=== PATIENT | female | born 1985 | race American Indian/Alaskan Native ===

== ENCOUNTER 2021-05-04 11:16 | Emergency (ER) | payer OTHER ==
[2021-05-04 12:30] VITALS: BP 190/102
[2021-05-04 14:34] LABS: Basophils # (Auto) 0.1 K/mm3 (0.0-0.1); Basophils % (Auto) 0.7 % (0.0-1.8); Eosinophils # (Auto) 0.2 K/mm3 (0.0-0.4); Eosinophils % (Auto) 2.1 % (0.0-4.3); Hemoglobin 12.9 gm/dl (10.1-14.3); Lymphocytes # (Auto) 3.2 K/mm3 (1.2-5.4); Lymphocytes % (Auto) 41.3 % (13.4-35.0); Mean Corpuscular HGB Conc 32 % (30-34); Mean Corpuscular Volume 89 fl (79-97); Monocytes # (Auto) 0.5 K/mm3 (0.0-0.8); Monocytes % (Auto) 6.2 % (0.0-7.3); Platelet Count 323 K/mm3 (140-440); Red Cell Distribution Width 14.9 % (13.2-15.2)
[2021-05-04 15:07] LABS: Alanine Aminotransferase 10 units/L (7-56); Albumin 3.8 g/dL (3.9-5); Blood Urea Nitrogen 10 mg/dL (7-17); Calcium 9.2 mg/dL (8.4-10.2); Hemolysis Index 1
[2021-05-04 15:09] LABS: BUN/Creatinine Ratio 14
--- NOTE | 2021-05-04 15:26 | Emergency Department Report ---
ED Female HPI - General Chief complaint: Vaginal Bleeding Stated complaint: DR SENT FOR HEAVY BLEEDING Time Seen by Provider: 05/04/21 14:19 Source: patient Mode of arrival: Ambulatory Limitations: No Limitations - History of Present Illness Initial comments: 35 year old female presents to ED with complaints of abnormal vaginal bleeding. Pt states that the bleeding has been ongoing since March 2021. She states she had a normal mentrual cycle in the beginning of march, then bleeding stopped and the 1 week later she started to bleed again and has been bleeding since. She states she has been to a few ERs for her symptoms and she has had labs and pelvic Ultrasounds. She states she also saw her OBGYN last saturday and had US. She states the ultrasounds keeps showing the they are unable to see her right ovary and the "something" is blocking it. She states her OBGYN has discussed exploratory surgery and that is scheduled for may 16. She states the bleeding has been heavier than her normal mentrual cycle and she has been passing large clots. She states she has been changing 3 pads every 2 hrs and she has been having a pulling sensation in right pelvic area since the bleeding started in march. She states what concerned her today was that she woke up with her pants soaked with blood and she felt dizzy and lightheaded. She denies any syncope or near syncopal episodes, chest pain, sob or any additional symptoms at this time. She called her OBGYN office and they recommended coming to ED. She states she was tried on provera x2 without success. Her pmhx is significant for PCOS, intracranial hypertension, and obesity Complaint: vaginal bleeding -: week(s) (since march 2021) - Related Data Previous Rx's Medication Instructions Recorded Last Taken Type HYDROcodone/APAP 5-325 [Union 1 each PO Q6HR PRN #12 tablet 05/04/21 Unknown Rx 5/325] Ibuprofen [Motrin] 800 mg PO Q8HR PRN #30 tablet 05/04/21 Unknown Rx Allergies Allergy/AdvReac Type Severity Reaction Status Date / Time No Known Allergies Allergy Unverified 05/04/21 12:27 ED Review of Systems ROS: Stated complaint: DR SENT FOR HEAVY BLEEDING Other details as noted in HPI Comment: All other systems reviewed and negative Constitutional: denies: chills, fever Eyes: denies: eye pain, eye discharge, vision change ENT: denies: ear pain, throat pain Respiratory: denies: cough, shortness of breath, wheezing Cardiovascular: denies: chest pain, palpitations Gastrointestinal: abdominal pain. denies: nausea, vomiting, diarrhea, constipation, hematemesis, melena, hematochezia Genitourinary: abnormal menses. denies: urgency, dysuria, frequency, hematuria, discharge Musculoskeletal: denies: back pain, joint swelling, arthralgia, myalgia Skin: denies: rash, lesions, change in color, change in hair/nails, pruritus Neurological: denies: headache, weakness, numbness, paresthesias, confusion, abnormal gait, vertigo Psychiatric: denies: anxiety, depression, auditory hallucinations, visual hallucinations, homicidal thoughts, suicidal thoughts Hematological/Lymphatic: denies: easy bleeding, easy bruising ED Past Medical Hx - Past Medical History Additional medical history: OVARY CYST/IIH/ - Surgical History Hx Cholecystectomy: Yes Additional Surgical History: OVARY - Medications Home Medications: Home Medications Medication Instructions Recorded Confirmed Last Taken Type HYDROcodone/APAP 5-325 [Union 1 each PO Q6HR PRN #12 tablet 05/04/21 Unknown Rx 5/325] Ibuprofen [Motrin] 800 mg PO Q8HR PRN #30 tablet 05/04/21 Unknown Rx ED Physical Exam - General Limitations: No Limitations General appearance: alert, in no apparent distress, obese - Head Head exam: Present: atraumatic, normocephalic, normal inspection - Eye Eye exam: Present: normal appearance, PERRL, EOMI Pupils: Present: normal accommodation - Neck Neck exam: Present: normal inspection, full ROM - Respiratory Respiratory exam: Present: normal lung sounds bilaterally. Absent: respiratory distress, wheezes, rales, rhonchi - Cardiovascular Cardiovascular Exam: Present: regular rate, normal rhythm, normal heart sounds - GI/Abdominal GI/Abdominal exam: Present: soft, tenderness (Mild ttp more so in right pelvic area without guarding or rebound). Absent: distended, guarding, rebound - Neurological Exam Neurological exam: Present: alert, oriented X3, CN II-XII intact, normal gait - Psychiatric Psychiatric exam: Present: normal affect, normal mood ED Course Vital Signs 05/04/21 12:27 Temperature 98.7 F Pulse Rate 83 Respiratory 17 Rate Blood Pressure 190/102 O2 Sat by Pulse 98 Oximetry ED Medical Decision Making - Lab Data Result diagrams: 05/04/21 13:52 05/04/21 13:52 - Medical Decision Making All labs reviewed -- Pt has normal H/H and remaining of her CBC normal, and CMP normal. HCG negative. Pt is well appearing, not toxic and not in any sig distress. She is neurologically intact with normal gait. Pt has had few pelvic US to evaluate her symptoms in past few weeks and most recent was saturday at her OB office. I do not see any indication for doing another pelvic US at this time. Her VS show that she is hypertensive but she states this is typical when she comes to hospital but she has never been dx with HTN, her remaining VS are stable. I do not believe her symptoms today are related to her HTN. No additional testing or emergent specialist consult indicated a this time. discussed all labs with patient. She will be given something for her pain and recommend she keeps her appoint for exploratory surgery in may. Pt expressed understanding of all instructions and agreed with plan. Critical care attestation.: If time is entered above; I have spent that time in minutes in the direct care of this critically ill patient, excluding procedure time. ED Disposition Clinical Impression: Abnormal vaginal bleeding Disposition: HOME / SELF CARE / HOMELESS Is pt being admited?: No Does the pt Need Aspirin: No Condition: Stable Instructions: Abnormal Uterine Bleeding, [id number] Additional Instructions: I recommend that you take the ibuprofen and hydrocodone as prescribed for pain. I also recommend that you keep your appointment with the [facility] to have your surgery on May 16. Drink lots of fluids. Return to the ER if your symptoms changes or worsens in any way. Prescriptions: Ibuprofen [Motrin] 800 mg PO Q8HR PRN #30 tablet PRN Reason: pain HYDROcodone/APAP 5-325 [Union 5/325] 1 each PO Q6HR PRN #12 tablet PRN Reason: Pain Referrals: [facility] [Provider Group] - 7-10 days Forms: Work/School Release Form(ED) Time of Disposition: 15:25
== END 2021-05-04 15:45 | disposition home or self-care (01) ==
LOC: ED 11:16
DX: N93.9 Abnormal uterine and vaginal bleeding, unspecified (principal); Z79.899 Other long term (current) drug therapy; Z90.49 Acquired absence of other specified parts of digestive tract; Z98.890 Other specified postprocedural states
CPT/HCPCS: 36415; 80053; 84702; 85025